=== PATIENT | female | born 1965 | race African-American/Black ===

== ENCOUNTER 2023-08-15 09:53 | Outpatient (CLI) | payer MEDICARE, SELFPAY ==
--- NOTE | 2023-08-15 10:03 | XR_ITS ---
FINAL REPORT CLINICAL HISTORY: INTERVERTEBRAL DISC DEGENERATION. PAIN WHEN SHE WALKS. HAS BURNING SENSATION IN BACK WHICH MAKES HER LEGS ACHE. COMPARISON: None FINDINGS: LUMBOSACRAL SPINE SERIES Five views of the lumbosacral spine were obtained. There is no fracture present. There is no malalignment. There is moderate degenerative change with multilevel facet arthropathy. IMPRESSION: Degenerative changes without acute process. Reviewed, Interpreted and Dictated by Fredrick Al III, MD Transcribed by Cammy Salmeron Authenticated and [facility]
== END 2023-08-15 23:59 ==
LOC: RAD 09:55
PROVIDERS: Visit Provider Physical Medicine & Rehabilitation Pain Medicine
DX: M51.36 Other intervertebral disc degeneration, lumbar region (principal)
CPT/HCPCS: 72110

== ENCOUNTER 2023-09-08 13:58 | Emergency (ER) | payer MEDICARE, SELFPAY ==
[2023-09-08 13:59] VITALS: BP 99/68; PULSE 74; RESP 18; TEMP 36.8; O2SAT 99; BMI 33.3
[2023-09-08 14:28] LABS: Apearance,Urine Cloudy (Clear); Bilirubin,Urine 1+ (Negative); Blood, Urine 3+ (Negative); Color,Urine Dark Yellow (Yellow); Glucose,Urine (UA) Negative (Negative); Ketones,Urine Negative (Negative); PH,Urine 5.5 (5.0-8.5); Protein,Urine 1+ (Negative); UTC Leukocyte Esterase,Urine Trace (Negative); Urobilinogen,Urine 0.2 EU/dl (0.2)
[2023-09-08 14:29] LABS: UTC Nitrate,Urine Negative (Negative)
--- NOTE | 2023-09-08 15:11 | ED_ITS ---
Discharge Plan Disposition Patient Disposition: Home, Self-Care Condition: Good Prescriptions Prescriptions: New cephalexin 500 mg tablet 500 mg PO BID 7 Days Qty: 14 0RF No Action gabapentin 800 mg tablet 800 mg PO ondansetron HCl 4 mg tablet 4 mg PO Patient Comments: TAKE 1 TABLET BY MOUTH EVERY 6 HOURS NEEDED FOR NAUSEA. loperamide 2 mg capsule 2 mg PO Patient Comments: TAKE 1 CAPSULE BY MOUTH 4 TIMES DAILY NEEDED FOR DIARRHEA. quetiapine 50 mg tablet 50 mg PO Patient Comments: TAKE 1 TABLET BY MOUTH NIGHTLY. mupirocin 2 % ointment topical Patient Comments: APPLY OINTMENT TOPICALLY THREE TIMES DAILY FOR 7 DAYS tizanidine 4 mg tablet 1 mg PO Q8H PRN (Reason: muscle spasticity) Qty: 90 0RF naproxen [Naprosyn] 500 mg tablet 500 mg PO BID Qty: 60 3RF hydrocodone-acetaminophen 5-325 mg tablet 1 tab PO TID Qty: 90 0RF Referrals Follow up/Referrals: Provider,Referral, MD [Primary Care Provider] - See instructions Clinical Impressions Clinical Impression: UTI (urinary tract infection) Instructions Patient Instructions: DI for Urinary Tract Infection (UTI) Discharge ED [facility] [place] HPI General Stated complaint: uti pain Mode of Arrival: Ambulatory Source of Information: Patient Time Seen by Provider: 09/08/23 15:11 Description of Symptoms (Recalled from Triage Doc. by RN): uti and it hurts HEENT Symptoms (Recalled from RN notes): No Resp Symptoms (Recalled from RN notes): No Skin Symptoms (Recalled from RN notes): No MS Symptoms (Recalled from RN notes): No Functional Status (Recalled from RN notes): na History of Present Illness Provider Complaint: 58 yr old female presents for burning,urgency,freq that started this am Related Data Home Medications Medication Instructions Recorded Confirmed gabapentin 800 mg tablet 800 mg PO 03/21/23 03/21/23 loperamide 2 mg capsule 2 mg PO 03/21/23 03/21/23 mupirocin 2 % topical ointment topical 03/21/23 03/21/23 ondansetron HCl 4 mg tablet 4 mg PO 03/21/23 03/21/23 quetiapine 50 mg tablet 50 mg PO 03/21/23 03/21/23 Previous Rx's Medication Instructions Recorded hydrocodone 5 mg-acetaminophen 325 1 tab PO TID #90 tabs 04/20/23 mg tablet naproxen 500 mg tablet (Naprosyn) 500 mg PO BID #60 tabs 06/15/23 tizanidine 4 mg tablet 1 mg (1/4 x 4 mg) PO Q8H PRN 06/15/23 muscle spasticity #90 tabs cephalexin 500 mg tablet 500 mg PO BID 7 days #14 tabs 09/08/23 Allergies Allergy/AdvReac Type Severity Reaction Status Date / Time acetaminophen Allergy Unknown Verified 06/15/23 09:43 [From DARVOCET-N] propoxyphene [PROPOXYPHENE] Allergy Unknown Verified 06/15/23 09:43 Worker's Comp Is this a Worker's Comp case?: No [facility] Disclaimer: The information contained in this section may have been updated after the patient was seen, as this information can be updated by other users. Medical History , TREATMENT COORDINATOR) High blood pressure Diabetes Surgical History , TREATMENT COORDINATOR) H/O: hysterectomy Social History , TREATMENT COORDINATOR) Smoking Status: Never smoker alcohol intake: never current occupational status: disabled Travel in the last 8 weeks: None ROS Obtained: Yes All systems reviewed & no additional complaints except as documented Constitutional Constitutional: Reports system reviewed and no additional complaints, except as documented Eyes Eyes: Reports system reviewed and no additional complaints, except as documented ENT Ears, Nose, Mouth, and Throat: Reports system reviewed and no additional complaints, except as documented Cardiovascular Cardiovascular: Reports system reviewed and no additional complaints, except as documented Respiratory Respiratory: Reports system reviewed and no additional complaints, except as documented Gastrointestinal Gastrointestingal: Reports system reviewed and no additional complaints, except as documented Genitourinary Female Genitourinary: Reports system reviewed and no additional complaints, except as documented, Reports as per HPI, Reports dysuria, Reports urinary frequency, Reports urinary hesitancy and Reports urinary urgency Musculoskeletal Musculoskeletal: Reports system reviewed and no additional complaints, except as documented Neurologic Neurologic: Reports system reviewed and no additional complaints, except as documented Endocrine Endocrine: Reports system reviewed and no additional complaints, except as documented Hematologic/Lymphatic Henatologic/Lymphatic: Reports system reviewed and no additional complaints, except as documented Physical Exam General General appearance: alert and in no apparent distress Head Head exam: atraumatic Eye Eye exam: Present normal appearance and PERRL ENT ENT exam: Present normal exam Respiratory Respiratory exam: Present normal lung sounds bilaterally Cardiovascular Cardiovascular exam: Present regular rate and normal rhythm Abdominal Exam Abdominal exam: Present soft and normal bowel sounds Neurological Exam Neurological exam: Present alert and oriented X3 Skin Skin exam: Present warm and intact Medical Decision Making Medical Records Medical records reviewed: Yes I reviewed the patient's medical records. John Inquiry Pt receiving controlled substance: No John was queried for this patient: No Vital Signs: 09/08/23 13:59 Temperature 98.3 F Temperature Source Oral Pulse Rate [Left Radial] 74 Respiratory Rate 18 Blood Pressure [Right Arm] 99/68 L Blood Pressure Mean [Right Arm] 78 02 Sat by Pulse Oximetry 99 Oxygen Delivery Method Room Air Lab Data Lab results reviewed: Yes I reviewed the patient's lab results. Lab Results 09/08/23 14:27: Urine Color Dark yellow, Urine Appearance Cloudy, Urine pH 5.5, Ur Specific Nixa 1.030, Urine Protein 1+, Urine Glucose (UA) Negative, Urine Ketones Negative, Urine Blood 3+, Urine Nitrate Negative, Urine Bilirubin 1+ A, Urine Urobilinogen 0.2, Ur Leukocyte Esterase Trace Orders (Tests/Meds): ORDERS Category Date Time Status Urine Culture Stat Micro 09/08/23 14:21 Received
[2023-09-08 15:24] VITALS: BP 99/68; PULSE 74; RESP 16; TEMP 36.8; O2SAT 99
[2023-09-08] MEDS: cephALEXin 500MG CAPSULE 500 MG PO (15:24)
== END 2023-09-08 15:26 | disposition home or self-care (01) ==
PROVIDERS: Emergency Provider Nurse Practitioner Family
DX: N39.0 Urinary tract infection, site not specified (principal); B96.89 Other specified bacterial agents as the cause of diseases classified elsewhere
CPT/HCPCS: 81003; 87086; 99204; 99212; G0463

== ENCOUNTER 2023-10-29 10:57 | Outpatient (POV) | payer MEDICARE, SELFPAY ==
[2023-10-29 11:09] VITALS: BP 114/60; PULSE 68; RESP 18; O2SAT 98; BMI 27.2
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
== END 2023-10-29 23:59 | disposition home or self-care (01) ==
PROVIDERS: PCP Family Medicine; Visit Provider Nurse Practitioner Family
DX: M46.1 Sacroiliitis, not elsewhere classified; M47.26 Other spondylosis with radiculopathy, lumbar region
CPT/HCPCS: 99202; G0463

== ENCOUNTER 2023-11-13 13:47 | Day surgery (SDC) | payer MEDICARE, SELFPAY ==
[2023-11-13 14:08] VITALS: BP 112/67; PULSE 71; RESP 18; TEMP 36.8; O2SAT 98; BMI 35.1
--- NOTE | 2023-11-13 14:43 | P.PCN_ITS ---
Procedure Date: 11/13/23 Time: 14:00 Anesthesiologist:: Rohit Bradford CRNA Complications:: None Pre-procedure Diagnosis:: Bilateral sacroiliitis. Post-procedure Diagnosis:: Same. Indications for Procedure:: Patient is a very pleasant 58-year-old female comes our clinic today for bilateral sacroiliac joint injections cortisone. Patient reports low lumbar back pain bilaterally. Bilateral posterior hip pain as well as difficulty transitioning from sitting to standing. She rates her pain 8/10. Procedure Details:: Procedure: Bilateral sacroiliac joint injections under fluoroscopy Informed consent was obtained and the risks and benefits of the procedure were explained to the patient.~ The patient was taken to the procedure room and noninvasive monitors were placed including a noninvasive blood pressure cuff and pulse oximeter.~ The patient was placed prone on the procedure table. Both hips were cleansed using Betadine as a cleansing solution. C-arm fluoroscopy was used to view the right sacroiliac joint.~ The skin and subcutaneous tissues were anesthetized using lidocaine 1.5% and a 25-gauge needle.~ After this, a 22-gauge spinal needle was inserted under fluoroscopic guidance into the inferior aspect of the right sacroiliac joint.~ Omnipaque dye was injected and good spread was seen throughout the joint.~ After this, approximately 5 mL of bupivacaine, 0.25% and Depo-Medrol, 40 mg was incrementally injected into the right sacroiliac joint. We then moved to the left sacroiliac joint.~ The skin and subcutaneous tissues were anesthetized using lidocaine 1.5% and a 25-gauge needle.~ After this, a 22- gauge spinal needle was inserted under fluoroscopic guidance into the inferior aspect of the left sacroiliac joint.~ Omnipaque dye was injected and good spread was seen throughout the joint. After this, approximately 5 mL of bupivacaine, 0.25% and Depo-Medrol, 40 mg was incrementally injected into the left sacroiliac joint.~ The patient tolerated the procedure well with no complications. The patient was observed in the Pain Clinic and then was discharged home neurologically intact. Plan and Disposition:: Patient was discharged without incident.
[2023-11-13 14:47] VITALS: BP 118/70; PULSE 73; RESP 18; O2SAT 99
[2023-11-13] MEDS: LIDOCAINE 1% 5ML PF VIAL 5 ML (14:48)
[2023-11-13] MEDS: methylPREDNISolone ACETATE 80MG/ML VIAL 80 MG (14:48)
[2023-11-13 14:49] VITALS: BP 122/71; PULSE 70; RESP 18; O2SAT 98
[2023-11-13 14:58] VITALS: BP 122/71; PULSE 70; RESP 18; O2SAT 98
== END 2023-11-13 14:48 | disposition home or self-care (01) ==
PROVIDERS: PCP Family Medicine; Visit Provider Nurse Anesthetist, Certified Registered
DX: M46.1 Sacroiliitis, not elsewhere classified (principal)
CPT/HCPCS: 27096; G0260; J1010

== ENCOUNTER 2024-05-28 12:19 | Outpatient (CLI) | payer MEDICARE, SELFPAY ==
--- NOTE | 2024-05-28 12:30 | XR_ITS ---
FINAL REPORT CLINICAL HISTORY: foot pain COMPARISON: None FINDINGS: Three views show no evidence of acute displaced fracture or dislocation of the visualized bony architecture. There are mild degenerative changes of the first and second tarsometatarsal joints. There is a small enthesophyte arising from the plantar calcaneus. IMPRESSION: Mild degenerative changes of the medial midfoot. Reviewed, Interpreted and Dictated by Rich Kidd MD Transcribed by Kina Armstrong Authenticated and [facility]
--- NOTE | 2024-05-28 12:30 | XR_ITS ---
FINAL REPORT CLINICAL HISTORY: foot pain COMPARISON: None FINDINGS: Three views show no evidence of acute displaced fracture or dislocation of the visualized bony architecture. There are moderate degenerative changes of the first and second tarsometatarsal joints. Minimal enthesophyte formation is noted at the Achilles insertion. IMPRESSION: Moderate degenerative changes of the medial midfoot. Reviewed, Interpreted and Dictated by Rich Kidd MD Transcribed by Kina Armstrong Authenticated and [facility]
== END 2024-05-28 23:59 | disposition home or self-care (01) ==
LOC: RAD 12:22
PROVIDERS: PCP Family Medicine; Visit Provider Podiatrist
DX: M79.671 Pain in right foot (principal); M79.672 Pain in left foot
CPT/HCPCS: 73630

== ENCOUNTER 2024-07-11 12:31 | Outpatient (CLI) | payer MEDICARE, SELFPAY ==
--- NOTE | 2024-07-11 12:35 | MR_ITS ---
FINAL REPORT TECHNIQUE: Multiplanar MR of the foot without gadolinium enhancement. CLINICAL HISTORY: evaluate presence of soft tissue mass. knot on dorsal aspect of foot. pain when applying pressure. marker on top of foot. COMPARISON: None FINDINGS: Marrow signal: Unremarkable Joints: Unremarkable Tendons:Visualized tendons are unremarkable Ligaments:Major ligaments intact Plantar Fascia:No evidence of tear There is a tissue marker overlying the first tarsal metatarsal articulation with bony hypertrophic change in the region, which may be partially responsible for the palpable mass. There is no cyst or soft tissue mass identified in this region. IMPRESSION: Mild degenerative hypertrophic changes are present in the region of interest, however no soft tissue mass or cyst is identified. Reviewed, Interpreted and Dictated by Rich Kidd MD Transcribed by Yovana Chase Authenticated and . [facility]
== END 2024-07-11 23:59 | disposition home or self-care (01) ==
LOC: RAD 12:32
PROVIDERS: PCP Family Medicine; Visit Provider Podiatrist
DX: M67.471 Ganglion, right ankle and foot (principal); M67.472 Ganglion, left ankle and foot; M79.671 Pain in right foot; M79.672 Pain in left foot; M89.8X7 Other specified disorders of bone, ankle and foot
CPT/HCPCS: 73718

== ENCOUNTER 2024-07-23 08:54 | Outpatient (CLI) | payer MEDICARE, SELFPAY ==
--- NOTE | 2024-07-23 08:55 | MR_ITS ---
FINAL REPORT CLINICAL HISTORY: evaluate presence of soft tissue mass. put marker on top of foot FINDINGS: Multiplanar MR imaging of the left foot was performed without contrast. The bony structures are intact without evidence of fracture, bone bruise or marrow edema. The flexor and extensor tendons are intact. The musculature is intact. The plantar aponeurosis is intact. There is a marker overlying the dorsal aspect of the tarsal metatarsal joints corresponding to dorsal osteophyte formation between the medial cuneiform and base of the first metatarsal. IMPRESSION: Dorsal osteophyte formation in the area of interest. No bone marrow edema seen. Reviewed, Interpreted and Dictated by Lang Begum MD Transcribed by Hilda Casey Authenticated and [facility]
== END 2024-07-23 23:59 | disposition home or self-care (01) ==
LOC: RAD 08:55
PROVIDERS: PCP Family Medicine; Visit Provider Podiatrist
DX: M67.472 Ganglion, left ankle and foot (principal); M79.672 Pain in left foot; M89.8X7 Other specified disorders of bone, ankle and foot
CPT/HCPCS: 73718

== ENCOUNTER 2024-09-23 10:50 | Outpatient (CLI) | payer MEDICARE, SELFPAY ==
[2024-09-23 19:33] LABS: Basophils # 0.1 K/mm3 (0-0.2); Basophils % 0.6 % (0.1-2.0); Eosinophils # 0.2 Kmm3 (0.0-0.4); Eosinophils % 1.9 % (0.1-12.0); Hemoglobin 11.6 g/dL (12.2-16.2); Immature Granulocytes # 0.02 10^3uL; Immature Granulocytes % 0.2 %; Lymphocytes # 3.3 K/mm3 (0.7-4.5); Lymphocytes % 38.4 % (10-50); Mean Corpuscular HGB Conc 32.2 g/dL (31.8-35.4); Mean Corpuscular Hemoglobin 27.9 pg (27.0-31.2); Mean Corpuscular Volume 86.5 fl (81-99); Mean Platelet Volume 9.6 fl (7.4-10.4); Monocytes # 0.7 K/mm3 (0.1-1.0); Monocytes % 7.7 % (1.7-9.3); Neutrophils # 4.3 K/mm3 (1.8-7.8); Neutrophils % 51.2 % (37.0-80.0); Nucleated Red Blood Cells # 0 10^3/uL; Nucleated Red Blood Cells % 0 %; Platelet Count 293 K/mm3 (142-424); Red Blood Count 4.16 M/mm3 (4.20-5.40); Red Cell Distribution Width 12.8 % (11.5-17.5); Red Cell Distribution Width-SD 40.2 fL; White Blood Count 8.5 K/mm3 (4.8-10.8)
[2024-09-23 19:53] LABS: Alanine Aminotransferase 13 U/L (12-78); Albumin/Globulin Ratio 1.7 (1.1-1.8); Alkaline Phosphatase 111 U/L (38-126); Anion Gap 6.9 mEq/L (5-15); Aspartate Amino Transferase 17 U/L (14-36); Bilirubin,Total 0.5 mg/dl (0.2-1.3); Blood Urea Nitrogen 11 mg/dl (7-17); Carbon Dioxide 26 mmol/L (22.0-30.0); Chloride 111 mmol/L (98-107); Estimated Glomerular Filt Rate 64 ml/min (>60); GFR (African American) 77 ML/MIN (>60); Globulin 2.3 g/dL (1.3-3.2); Glucose 66 mg/dl (74-100); Potassium 3.9 mmoL/L (3.5-5.1); Sodium 140 mmol/L (136-145); Total Protein,Serum 6.3 g/dl (6.3-8.2)
== END 2024-09-23 23:59 | disposition home or self-care (01) ==
LOC: LAB.DROPOF 09-25 10:51
PROVIDERS: PCP Nurse Practitioner; Visit Provider Nurse Practitioner
DX: K52.9 Noninfective gastroenteritis and colitis, unspecified (principal)
CPT/HCPCS: 80053; 85025

== ENCOUNTER 2025-03-31 17:19 | Emergency (ER) | payer OTHER, SELFPAY ==
[2025-03-31 17:37] VITALS: BP 101/84; PULSE 66; RESP 16; TEMP 36.6; O2SAT 96; BMI 31.2
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
[2025-03-31] MEDS: OXYCODONE 5MG IMMEDIATE RELEASE TABLET 5 MG PO (17:53)
[2025-03-31] MEDS: METHOCARBAMOL 500MG TABLET 1000 MG PO (17:53)
[2025-03-31 19:04] VITALS: BP 169/101; PULSE 65; RESP 16; TEMP 36.6; O2SAT 96
== END 2025-03-31 19:06 | disposition home or self-care (01) ==
PROVIDERS: Emergency Provider Emergency Medicine; PCP Nurse Practitioner
DX: S09.93XA Unspecified injury of face, initial encounter (principal); M54.59 Other low back pain; G89.29 Other chronic pain; V49.40XA Driver injured in collision with unspecified motor vehicles in traffic accident, initial encounter
CPT/HCPCS: 70450; 70486; 72125; 72192; 99284; 99285